=== PATIENT | male | born 1965 | race Caucasian/White ===

== ENCOUNTER 2021-05-08 11:58 | Emergency (ER) | payer MEDICAID, SELFPAY ==
[2021-05-08 12:00] VITALS: BP 154/110; PULSE 82; RESP 15; TEMP 36.2; O2SAT 100; BMI 21.1
--- NOTE | 2021-05-08 12:43 | EKG12_ITS ---
Test Reason : SOB Blood Pressure : / mmHG Vent. Rate : 064 BPM Atrial Rate : 064 BPM P-R Int : 160 ms QRS Dur : 084 ms QT Int : 430 ms P-R-T Axes : 065 052 040 degrees QTc Int : 443 ms Normal sinus rhythm Left ventricular hypertrophy Abnormal ECG Confirmed by CANDIE ARNOLD, KRISTY ([id number]), book editor DEB TAPIA ([id number]) on 05/09/2021 10:36:21 AM Referred By: GABRIEL Confirmed By:KRISTY SCHREIBER MD
--- NOTE | 2021-05-08 12:44 | CT_ITS ---
STUDY: CTA CHEST REASON FOR EXAM: Male, 55 years old. Dyspnea RADIATION DOSAGE (If Supplied By Facility): CTDIvol = ( 9.54 ) mGy, DLP = ( 345.12 ) mGycm TECHNIQUE: The examination was performed with the intravenous administration of IV 100mL Isovue-370. Post-processing of the angiographic images was performed, with multiplanar reformation and 3D reconstruction. Individualized dose optimization techniques were used for this CT. COMPARISON: None. FINDINGS: Normal enhancement of the main pulmonary artery and right and left pulmonary arteries. Normal enhancement of the bilateral peripheral pulmonary arteries. There is no demonstrated pulmonary embolism. Normal thoracic aorta and visualized great vessels. There is no demonstrated aortic dissection. Normal heart and pericardium. Normal mediastinum. Normal hilar regions. Normal visualized trachea and bronchi. The lungs are well expanded. Normal pulmonary parenchyma. Normal pleura. Normal chest wall structures. There are degenerative changes of thoracic spine. Normal visualized upper abdomen. CT/CTA Chest W/WO Contrast IMPRESSION: Normal CTA chest examination, without a demonstrated pulmonary embolism or arterial dissection. Electronically Signed: Brayan Castillo MD at 14:44 EDT , Service support ,
[2021-05-08] MEDS: Ipratropium/Albuterol Sulfate 3 ML AMPUL.NEB INHALATION (12:57)
[2021-05-08 12:59] VITALS: PULSE 65; RESP 20
--- NOTE | 2021-05-08 13:06 | ED.VIS.DYS ---
HPI History of Present Illness Chief Complaint: Shortness of Breath Informant: patient Onset/Context/Timing Onset: Today Context: gradual Timing: Continuous Quality: Positive for - (Tightness) Worsened by: Lying flat Relieved by: Nothing Associated Symptoms cough and rhinorrhea; Negative for post nasal drip, ear pain, fever, sore throat, chills, clear sputum, white sputum, yellow sputum or green sputum Chest Pain: Positive for None Narrative Narrative: Patient presents with shortness of breath that became worse today. Patient states it has gradually gotten worse. Patient describes as a tightness across his chest. Patient states it is worse sometimes when he lays flat. Patient admits to a cough denies any sputum production. Patient admits to some rhinorrhea. Patient denies any fevers or chills. Patient states he has had his COVID-19 vaccine. Patient does not think he has had any recent exposures to COVID-19. [facility] Medical History (Updated 05/08/21 @ 15:[address] Alexis Rosas DO) Stroke Home Medications albuterol sulfate [Ventolin HFA] 1 - 2 puff INHALATION Q4H PRN PRN #1 inhaler 05/08/21 [Rx Last Taken Unknown] Allergy/AdvReac Type Severity Reaction Status Date / Time nut - unspecified Allergy Anaphylaxis Verified 05/08/21 11:59 FRUITS AdvReac Other Uncoded 05/08/21 11:59 VEGATABLES AdvReac Other Uncoded 05/08/21 11:59 Surgical History (Updated 05/08/21 @ 13:[address] Alexis Rosas DO) Hx of fasciotomy Social History Smoking Status: Never smoker ROS ROS ED Constitutional Constitutional ED: Denies chills or fever(s) Eyes Eyes: Denies blurry vision or change in vision ENT ENT ED: Reports rhinorrhea; Denies sore throat Cardiovascular Cardiovascular: Denies chest pain or palpitations Respiratory/Chest Respiratory/Chest: Reports cough and dyspnea Gastrointestinal Gastrointestinal: Denies nausea or vomiting Genitourinary Genitourinary ED: Denies dysuria or hematuria Musculoskeletal Musculoskeletal: Reports neck pain; Denies back pain Integumentary Denies abscess or rash Neurologic Neurologic: Denies headache(s) or weakness Allergic/Immunologic Allergic/Immunologic ED: Denies mouth swelling or urticaria EXAM Physical Exam Const Vital Signs: 05/08/21 12:00 05/08/21 12:16 05/08/21 12:59 Temperature 97.1 F L Temperature Source Temporal Pulse Rate 82 65 Respiratory Rate 15 20 H Respiratory Effort Short of Breath Respiratory Depth Normal Respiratory Pattern Normal Normal Blood Pressure 154/110 H Blood Pressure Mean 124 Pulse Ox 100 Oxygen Delivery Method Room Air 05/08/21 14:03 Temperature Temperature Source Pulse Rate 61 Respiratory Rate 14 Respiratory Effort Respiratory Depth Respiratory Pattern Blood Pressure 132/87 H Blood Pressure Mean 102 Pulse Ox 97 Oxygen Delivery Method Positive well nourished and well developed General Appearance ED: well developed HEENT Reports moist mucous membranes Neck supple and no JVD Resp normal respiratory effort and clear to auscultation bilaterally Cardio regular rate, regular rhythm and no murmurs GI normal to inspection, nondistended, normoactive bowel sounds and non-tender Palpation: soft Extremity normal to inspection General Extremety ED: Negative for edema or tenderness General Extremity: Negative for edema Neuro oriented x3, CN's II-XII intact bilaterally and no sensory deficits noted Sensorium / Orientation: alert Motor Exam: strength 5/5 throughout Psych mental status grossly normal Skin no rashes or lesions noted MDM MDM MDM Narrative Medical decision making narrative: Patient was given a DuoNeb aerosol here. EKG was obtained. On my interpretation, it showed a normal sinus rhythm with a rate of 64. RI interval, QRS interval, and QTc intervals were all normal. Napoleon was normal. There are no acute ST or T wave changes. There is evidence of left ventricular hypertrophy. CBC and comprehensive metabolic profile were within normal limits. High-sensitivity troponin was normal. CTA of the chest was obtained. There is no evidence of luminary embolism, aortic dissection, or pneumonia. This was interpreted by the radiologist and reviewed by myself. COVID-19 rapid antigen was obtained and was negative. Patient was advised of his results. Patient was given a prescription for an albuterol inhaler to take as needed. Patient was instructed to take Tylenol or ibuprofen as needed for pain. Patient was instructed to follow-up with his primary care physician in 5 to 7 days. Patient understood and was agreeable with the plan. All questions were answered. Lab Data Attestation: I reviewed the patient's lab results. Labs: Laboratory Results - last 24 hr 05/08/21 05/08/21 13:35 13:35 WBC 4.2 L RBC 5.03 Hgb 15.0 Hct 44.0 MCV 87.5 MCH 29.8 MCHC 34.1 RDW Std Deviation 40.4 RDW Coeff of Sarah 12.6 Plt Count 242 MPV 10.7 Immature Gran % (Auto) 0.200 Neut % (Auto) 65.1 Lymph % (Auto) 23.1 Throckmorton % (Auto) 7.3 Eos % (Auto) 3.1 Baso % (Auto) 1.2 H Absolute Neuts (auto) 2.8 Absolute Lymphs (auto) 0.98 Nucleated RBC % 0 Sodium 141 Potassium 3.9 Chloride 107 Carbon Dioxide 29.0 Anion Gap 5 BUN 10 Creatinine 0.91 Estim Creat Clear Calc 96.37 Est GFR (MDRD) Af Amer 111 Est GFR (MDRD) Non-Af 92 BUN/Creatinine Ratio 10.9 Glucose 105 Calcium 8.7 Total Bilirubin 0.40 AST 23 ALT 31 Alkaline Phosphatase 92 Troponin I High Sens 5 Total Protein 7.0 Albumin 3.7 Globulin 3.3 Albumin/Globulin Ratio 1.1 Radiography Diagnostic Testing: Radiology Impression Chest CTA 05/08/21 12:44 IMPRESSION: Normal CTA chest examination, without a demonstrated pulmonary embolism or arterial dissection. Electronically Signed: Brayan Castillo MD at 14:44 EDT , Service support , EKG Initial EKG: Attestation: I personally reviewed and interpreted this EKG as follows: Interpretation: Sinus Rhythm (64) and No Acute Injury Pattern Comments: Left ventricular hypertrophy Prior EKG tracings: not available for review Discharge Plan Triage Chief Complaint: Shortness of Breath ED Provider: Alexis Rosas Dx/Rx/DC Orders Clinical Impression: Dyspnea Instructions: ED Dyspnea Prescriptions: New albuterol sulfate [Ventolin HFA] 1 INHALER inhaler 1 - 2 puff inhalation Q4H PRN PRN (Reason: Wheezing) Qty: 1 RF: 0 Primary Care Provider: Care Physician,No Primary Referrals: Care Physician,No Primary [Primary Care Provider] - Doctor,Your [STAFF PHYSICIAN] - 5-7 Days Disposition Disposition: Home, Self Care
[2021-05-08 13:47] LABS: Absolute Lymphocyte Count 0.98 X10^3/uL (0.83-4.51); Absolute Neutrophil Count 2.8 X10^3/uL (2.0-7.7); Basophil# 0.05 X10^3/uL; Basophil% 1.2 % (0-1); Eosinophil# 0.13 X10^3/uL; Eosinophils% 3.1 % (0-5); Lymphocyte # 0.98 X10^3/ul (0.83-4.51); Lymphocyte % 23.1 % (19-41); Mean Corp Hgb Conc 34.1 g/dL (32-36); Mean Corpuscular Hgb 29.8 pg (27.0-32.0); Mean Corpuscular Volume 87.5 fL (80-94); Mean Platelet Vol. 10.7 fl (6.2-12.0); Monocyte# 0.31 X10^3/uL; Monocyte% 7.3 % (0-10); NRBC Flagged by Analyzer 0 % (0-5); Neutrophil # 2.76 X10^3/uL (2.7-7.7); Neutrophil % 65.1 % (47-70); Platelet Count 242 K/mm3 (150-450); RBC Distribution Width CV 12.6 % (11.6-14.6); RBC Distribution Width SD 40.4 fl (35.1-43.9); Red Blood Count 5.03 M/mm3 (4.6-6.2); White Blood Count 4.2 K/mm3 (4.4-11.0)
[2021-05-08 14:03] VITALS: BP 132/87; PULSE 61; RESP 14; O2SAT 97
[2021-05-08 14:08] LABS: ALB/GLOB Ratio 1.1 RATIO (0.9-2.4); AST(SGOT) 23 U/L (15-37); Alanine Aminotransfer ALT/SGPT 31 U/L (16-61); Albumin, Serum 3.7 g/dL (3.2-5.0); Alkaline Phosphatase 92 U/L (45-117); Anion Gap 5 (5-15); BUN 10 mg/dL (7-18); BUN/Creat Ratio 10.9 RATIO (10-20); Calcium,Total 8.7 mg/dL (8.5-10.1); Chloride 107 mmol/L (98-107); Creatinine, Serum 0.91 mg/dL (0.70-1.30); EST Glomerular Filtration Rate 92 mL/min (>60); Est Glom Filt Rate - Afr Amer 111 mL/min (>60); Estimated Creatinine Clearance 96.37 ml/min; Globulin 3.3 g/dL (2.2-4.2); Glucose 105 mg/dL (74-106); Potassium 3.9 mmol/L (3.5-5.1); Sodium Level 141 mmol/L (136-145); Troponin-I HS 5 pg/mL (3.0-78.0)
[2021-05-08 16:23] VITALS: PULSE 67; RESP 16
== END 2021-05-08 16:24 | disposition home or self-care (01) ==
PROVIDERS: Emergency Provider Emergency Medicine
DX: R06.00 Dyspnea, unspecified (principal); R07.89 Other chest pain; R05 Cough; J34.89 Other specified disorders of nose and nasal sinuses; Z86.73 Personal history of transient ischemic attack (TIA), and cerebral infarction without residual deficits
CPT/HCPCS: 71275; 80053; 84484; 85025; 87426; 93005; 99284; Q9967; A4216

== ENCOUNTER 2024-03-25 01:35 | Emergency (ER) | payer MEDICAID, SELFPAY ==
[2024-03-25 01:36] VITALS: BP 149/99; PULSE 72; RESP 17; TEMP 36.6; O2SAT 96; BMI 22.8
--- NOTE | 2024-03-25 01:55 | EKG12_ITS ---
Test Reason : DYSRHYTHMIA Blood Pressure : / mmHG Vent. Rate : 073 BPM Atrial Rate : 073 BPM P-R Int : 172 ms QRS Dur : 084 ms QT Int : 404 ms P-R-T Axes : 020 029 028 degrees QTc Int : 445 ms Sinus rhythm with occasional Premature ventricular complexes Otherwise normal ECG Confirmed by CANDIE ARNOLD, KRISTY ([id number]), editor magazine ДМИТРИЙ WEISS ([id number]) on 03/25/2024 9:33:36 AM Referred By: RAMIRO Confirmed By:KRISTY SCHREIBER MD
[2024-03-25 02:03] LABS: Absolute Lymphocyte Count 1.65 X10^3/uL (0.83-4.51); Absolute Neutrophil Count 4.1 X10^3/uL (2.0-7.7); Basophil# 0.06 X10^3/uL; Basophil% 0.9 % (0-1); Eosinophil# 0.43 X10^3/uL; Eosinophils% 6.3 % (0-5); Hematocrit 43.8 % (40-54); Hemoglobin 14.8 g/dL (13.0-16.5); Lymphocyte # 1.65 X10^3/ul (0.83-4.51); Mean Corp Hgb Conc 33.8 g/dL (32-36); Mean Corpuscular Hgb 28.8 pg (27.0-32.0); Mean Corpuscular Volume 85.2 fL (80-94); Mean Platelet Vol. 10.4 fl (6.2-12.0); Monocyte# 0.61 X10^3/uL; Monocyte% 8.9 % (0-10); NRBC Flagged by Analyzer 0 % (0-5); Neutrophil % 59.6 % (47-70); Platelet Count 275 K/mm3 (150-450); RBC Distribution Width CV 12.3 % (11.6-14.6); RBC Distribution Width SD 37.9 fl (35.1-43.9); Red Blood Count 5.14 M/mm3 (4.6-6.2); White Blood Count 6.9 K/mm3 (4.4-11.0)
--- NOTE | 2024-03-25 02:09 | EDS_ITS ---
HPI History of Present Illness Chief Complaint: Palpitations Informant: patient Narrative Narrative: Presents by EMS from home after awakening 12:30 AM noting tachycardia and irregular heartbeat. States pulse oximeter told with a heart rate of 107 per patient. He reports history of anxiety with occasional panic attacks. Denies recent cough denies recent vomiting or diarrhea. Symptoms lasted about 30 minutes. No lightheaded symptoms. EMS arrival asymptomatic EKG is reviewed that was sent in normal sinus rhythm no acute findings noted. Pertinent medical history 2009 had a small stroke with no residual deficits he is on a baby aspirin. He states no recent blood work. Patient reports a Holter monitor in 2009 with his stroke stating no dysrhythmias were found. Prior similar symptoms: Yes [facility] Medical History Stroke Home Medications ?Medication ?Instructions ?Recorded ?Last Taken ?Type aspirin 81 mg tablet,delayed 81 mg PO DAILY 03/25/24 Unknown History release (Adult Aspirin Regimen) Allergy/AdvReac Type Severity Reaction Status Date / Time nut - unspecified Allergy Anaphylaxis Verified 03/25/24 01:41 Food Allergies: Uncoded AdvReac Other Verified 03/25/24 01:41 Surgical History Hx of fasciotomy Social History Smoking Status: Never smoker ROS ROS ED Constitutional Constitutional ED: Denies chills, fever(s) or sweats Eyes Eyes: Denies change in vision ENT ENT ED: Denies dysphagia or sore throat Cardiovascular Cardiovascular: Reports palpitations and racing heartbeat; Denies chest pain or leg edema Respiratory/Chest Respiratory/Chest: Denies cough, dyspnea or dyspnea on exertion Gastrointestinal Gastrointestinal: Denies abdominal pain, diarrhea, nausea or vomiting Genitourinary Genitourinary ED: Denies dysuria, hematuria or urinary frequency Musculoskeletal Musculoskeletal: Denies back pain, extremity pain or neck pain Integumentary Denies rash or wounds Neurologic Neurologic: Denies headache(s), paresthesias or weakness EXAM Physical Exam Const Vital Signs: 03/25/24 01:36 03/25/24 02:36 03/25/24 03:00 Temperature 97.8 F Temperature Source Oral Pulse Rate 72 78 95 Respiratory Rate 17 16 18 Blood Pressure 149/99 H 130/99 H 135/93 H Blood Pressure Mean 115 109 107 Pulse Ox 96 97 97 Oxygen Delivery Method Room Air Room Air 03/25/24 03:14 Temperature 98.6 F Temperature Source Pulse Rate 58 L Respiratory Rate 18 Blood Pressure 135/93 H Blood Pressure Mean 107 Pulse Ox 98 Oxygen Delivery Method Positive well nourished and well developed General Appearance ED: well developed and NAD HEENT Reports moist mucous membranes normocephalic and atraumatic Eyes EOMs intact bilaterally and conjunctivae normal General Eye ED: Yes normal appearance of both eyes Neck no lymphadenopathy and supple General: Negative for tenderness Chest Wall Chest: Negative for tenderness Resp normal respiratory effort and normal air movement Effort and Inspection: symmetric chest movement; Negative for respiratory distress Cardio regular rate, regular rhythm and no murmurs Peripheral Pulses: pulses 2+ throughout GI normal to inspection, nondistended, normoactive bowel sounds and non-tender Palpation: Negative for guarding or rebound tenderness present Back/Spine no CVA tenderness and no thoracic nor lumbar tenderness Extremity normal to inspection General Extremety ED: Negative for edema or tenderness General Extremity: Negative for edema Neuro oriented x3 and no sensory deficits noted Sensorium / Orientation: awake and alert Skin no rashes or lesions noted and no wounds MDM MDM MDM Narrative Medical decision making narrative: Interventions / MDM: Differential diagnosis: Palpitations, cardiac dysrhythmia Diagnosis considered but do not suspect: Pulm embolism however no dyspnea, hypoxia, or tachycardia. My EKG interpretation: Sinus rate of 73, no ST changes, PVC noted. QTc 445. Imaging independently reviewed and interpreted by myself: N/A External documents reviewed: N/A Test considered but not ordered:N/A ED course: Patient currently asymptomatic. EKG no acute findings occasional PVC noted on the monitor however he is asymptomatic from this. Will check basic labs and thyroid screening. Will continue to monitor. Labs potassium 3.0 orally replaced. TSH was elevated, T4 level sent and was no rmal. Remains asymptomatic in the ED. Patient set up for 48-hour Holter monitor through the emergency department. Is given follow-up as an outpatient. Return precaution discussed with the patient. All questions were answered. Re-evaluation: stable Disposition discussed with patient/family/significant other: Patient Case discussed with consulting clinician: N/A This note was generated with Veodiaation software. It may contain incorrect words, spelling, and punctuation that were not noted in checking the note before signing. Lab Data Attestation: I reviewed the patient's lab results. Labs: Laboratory Results - last 24 hr 03/25/24 01:24 WBC 6.9 RBC 5.14 Hgb 14.8 Hct 43.8 MCV 85.2 MCH 28.8 MCHC 33.8 RDW Std Deviation 37.9 RDW Coeff of Sarah 12.3 Plt Count 275 MPV 10.4 Immature Gran % (Auto) 0.300 Neut % (Auto) 59.6 Lymph % (Auto) 24.0 Mccreary % (Auto) 8.9 Eos % (Auto) 6.3 H Baso % (Auto) 0.9 Absolute Neuts (auto) 4.1 Absolute Lymphs (auto) 1.65 Nucleated RBC % 0 Sodium 139 Potassium 3.0 L Chloride 104 Carbon Dioxide 29.0 Anion Gap 6 BUN 11 Creatinine 0.92 Estim Creat Clear Calc 99.80 Est GFR (MDRD) Af Amer 110 Est GFR (MDRD) Non-Af 91 BUN/Creatinine Ratio 12.0 Glucose 141 H Calcium 8.9 TSH 5.41 H Free T4 0.95 Discharge Plan Triage Chief Complaint: Palpitations ED Provider: Paco Hall Dx/Rx/DC Orders Clinical Impression: Palpitations, Hypokalemia, Asymptomatic PVCs Instructions: PVCs, ED Palpitations Prescriptions: No Action aspirin [Adult Aspirin Regimen] 81 mg tablet,delayed release (DR/EC) 81 mg PO DAILY Primary Care Provider: Care Physician,No Primary Referrals: Kevin Murray DO [Med Staff - Outdoor Illuminating Engineer] - 1 Week Care Physician,No Primary [Primary Care Provider] - Activity Restrictions/Additional Instructions: Labs no potassium 3.0. Orally replaced. Free thyroid levels were normal. Maintain 40-hour Holter monitor. Try to avoid caffeine products. Follow-up as an outpatient as given. If symptoms return or worsens, return to ED for reevaluation. Print Language: Citizen Of [place] Disposition Disposition: Home, Self Care Discharge Date/Time: 03/25/24 03:17
[2024-03-25 02:29] LABS: Anion Gap 6 (5-15); BUN 11 mg/dL (7-18); Calcium,Total 8.9 mg/dL (8.5-10.1); Chloride 104 mmol/L (98-107); Creatinine, Serum 0.92 mg/dL (0.70-1.30); EST Glomerular Filtration Rate 91 mL/min (>60); Est Glom Filt Rate - Afr Amer 110 mL/min (>60); Glucose 141 mg/dL (74-106); Sodium Level 139 mmol/L (136-145); Thyroid Stim Hormone (TSH) 5.41 uIU/mL (0.358-3.74)
[2024-03-25 02:36] VITALS: BP 130/99; PULSE 78; RESP 16; O2SAT 97
[2024-03-25] MEDS: Potassium Chloride Oral Tablet 20 MEQ 40 MEQ PO (02:43)
[2024-03-25 02:53] LABS: T4 Free Direct 0.95 ng/dL (0.76-1.46)
[2024-03-25 03:00] VITALS: BP 135/93; PULSE 95; RESP 18; O2SAT 97
[2024-03-25 03:14] VITALS: BP 135/93; PULSE 58; RESP 18; TEMP 37; O2SAT 98
== END 2024-03-25 03:17 | disposition home or self-care (01) ==
PROVIDERS: Emergency Provider Emergency Medicine; Visit Provider Emergency Medicine
DX: I49.3 Ventricular premature depolarization (principal); E87.6 Hypokalemia; Z79.82 Long term (current) use of aspirin; Z86.73 Personal history of transient ischemic attack (TIA), and cerebral infarction without residual deficits
CPT/HCPCS: 80048; 84439; 84443; 85025; 93005; 93225; 93226; 99285

== ENCOUNTER → 2024-03-25 | Outpatient (CLI) | payer MEDICAID, SELFPAY | END | disposition home or self-care (01) | LOC: CVS 02:19 | PROVIDERS: Visit Provider Emergency Medicine | DX: R00.2 Palpitations (principal) | CPT/HCPCS: 93225; 93226 ==

== ENCOUNTER 2024-04-03 03:26 | Emergency (ER) | payer MEDICAID, SELFPAY ==
[2024-04-03 03:27] VITALS: BP 156/99; PULSE 78; RESP 16; TEMP 36.5; O2SAT 100; BMI 22.9
--- NOTE | 2024-04-03 03:32 | EDS_ITS ---
HPI History of Present Illness Chief Complaint: Palpitations [facility] Medical History Stroke Home Medications ?Medication ?Instructions ?Recorded ?Last Taken ?Type aspirin 81 mg tablet,delayed 81 mg PO DAILY 03/25/24 Unknown History release (Adult Aspirin Regimen) Allergy/AdvReac Type Severity Reaction Status Date / Time nut - unspecified Allergy Anaphylaxis Verified 04/03/24 03:27 Food Allergies: Uncoded AdvReac Other Verified 04/03/24 03:27 Surgical History Hx of fasciotomy Social History Smoking Status: Never smoker EXAM Physical Exam Const Vital Signs: 04/03/24 03:27 04/03/24 03:41 04/03/24 04:27 Temperature 97.7 F L Temperature Source Oral Pulse Rate 78 60 Respiratory Rate 16 12 Blood Pressure 156/99 H 133/99 H Blood Pressure Mean 118 110 Pulse Ox 100 96 Oxygen Delivery Method Room Air Room Air MDM MDM MDM Narrative Medical decision making narrative: HISTORY OF PRESENT ILLNESS: 58-year-old male presents with palpitations. Notes he woke up palpitations. Notes he recently had a Holter monitor to further evaluate the symptoms. He states he has had PVCs with agreement over life however recently they have become more severe and worrisome. Notes he is under a lot of stress caring for his elderly mother. He denies any bleeding diathesis. Denies any vomiting or diarrhea. Denies any chest pain. Denies any leg swelling. Denies any decreased exercise tolerance. The patient denies recent surgery in the last 4 weeks or immobilization in the last 3 days, denies previous diagnosis of DVT or PE, hemoptysis, unilateral leg swelling or malignancy with treatment the last 6 months or palliative. No estrogen use noted. REVIEW OF SYSTEMS: Pertinent positives: Palpitations Pertinent negatives: As per HPI PHYSICAL EXAM: Nursing triage notes reviewed, Vital signs reviewed Constitutional: please see mdm HENT: MMM Eyes: Pupils equal round and reactive to light, Extraocular muscles intact Neck: No stridor, no JVD, full neck ROM Lungs: Clear to auscultation, No wheezing or rales. No increased work of breathing, no conversational dyspnea, no accessory muscle use, no nasal flaring. No respiratory distress noted Heart: Regular rate and rhythm, No murmurs, No rubs and No gallops, 2+ distal pulses (radial, femoral, posterior tibial) in all extremities Abdomen: Soft, there is no tenderness, rigidity, rebound or guarding, no obvious peritoneal signs, no palpable pulsatile abdominal masses, no auscultated abdominal bruit : No CVAT Extremities: No edema Neuro: No focal neurological deficits, cranial nerves II through XII intact, 5/5 strength in all extremities. Intact sensation to light touch in all extremities, 2+ reflexes bilateral patella tendons. Normal gait. No ataxia. Skin: No rash or lesions noted MEDICAL DECISION MAKING: Chief Complaint: Palpitations External records reviewed: Holter monitor report reviewed: Large PVC burden noted. No runs of ventricular tachycardia noted. Reviewed recent ED visit labs with a elevated TSH but normal T4 Factors affecting care: History of palpitations, premature ventricular contraction Social determinants of health: none History obtained from others: Pts Consults: none MDM Narrative: Patient was hemodynamically stable, afebrile nontoxic-appearing. Exam without focal cardiopulmonary abnormalities. He is initially hypertensive at 156/99 I considered the following differential diagnosis: Arrhythmia, anemia, myocardi al ischemia, thyroid dysfunction, electrolyte disturbance, dehydration I obtained a broad lab and imaging workup to further elucidate etiology patient complaint. I gave 1 L normal saline for rehydration. ALL IMAGES (IF OBTAINED) HAVE BEEN PERSONALLY REVIEWED AND INTERPRETED BY MYSELF. EKG with normal sinus rhythm, normal axis, normal intervals, no STEMI, similar to EKG from March 2024 High-sensitivity troponin is negative, no evidence of myocardial ischemia Magnesium within normal limits CBC without leukocytosis, anemia or thrombocytopenia BMP without evidence of significant electrolyte abnormalities, no anion gap, no acute kidney injury. On reevaluation patient's blood pressure improved to 133/99. The synthesis of the patient's history, physical exam, labs, and images suggest likely frequent PVCs causing symptoms. These are benign and not life-threatening and do not require specific treatment. I also considered thyroid etiology however the patient had recent thyroid testing was negative. There is no indication for admission at this time. Encouraged the patient to follow-up with cardiology as well as electrophysiology for further outpatient evaluation and treatment. The patient and/or family, caregivers express understanding. The patient and/or family, caregivers agrees with the plan. Shared decision making: I will have a discussion with the patient and or visitors regarding risk/benefits of further testing or admission. They will be made aware of of the risk/benefits inherent in this decision they will be given the opportunity to voice understanding. Total critical care time today provided was at least 0 minutes. This excludes separately billable procedures. Critical care time (if documented) is secondary to the patient having high probability of clinically significant/life threatening deterioration in the patient's condition which required my urgent intervention. Impression: 1. Palpitations 2. History PVCs Dispo: Discharge home This note was generated with [employer] Here dictation software. It may contain incorrect words, spelling, and punctuation that were not noted in review of the chart prior to signing. Lab Data Labs: Laboratory Results - last 24 hr 04/03/24 03:40 WBC 6.0 RBC 5.17 Hgb 14.8 Hct 43.6 MCV 84.3 MCH 28.6 MCHC 33.9 RDW Std Deviation 36.4 RDW Coeff of Sarah 12.1 Plt Count 263 MPV 10.5 Immature Gran % (Auto) 0.300 Neut % (Auto) 64.9 Lymph % (Auto) 19.9 Mineral % (Auto) 7.5 Eos % (Auto) 6.1 H Baso % (Auto) 1.3 H Absolute Neuts (auto) 3.9 Absolute Lymphs (auto) 1.20 Nucleated RBC % 0 Sodium 138 Potassium 3.8 Chloride 107 Carbon Dioxide 27.0 Anion Gap 4 L BUN 14 Creatinine 0.84 Estim Creat Clear Calc 109.72 Est GFR (MDRD) Af Amer 121 Est GFR (MDRD) Non-Af 100 BUN/Creatinine Ratio 16.6 Glucose 118 H Calcium 8.7 Magnesium 1.8 Troponin I High Sens 5 Radiography Diagnostic Testing: Clinical Impression(s) from Imaging Studies Chest X-Ray 04/03/24 04:00 IMPRESSION: No radiographic evidence of acute cardiopulmonary disease. Electronically Signed: Vivi Kern MD at 4:55 EDT , Discharge Plan Triage Chief Complaint: Palpitations ED Provider: Sundeep Whiting Dx/Rx/DC Orders Instructions: ED Palpitations Prescriptions: No Action aspirin [Adult Aspirin Regimen] 81 mg tablet,delayed release (DR/EC) 81 mg PO DAILY Primary Care Provider: Care Physician,No Primary Referrals: Bernardo Coffey MD [Med Staff - Active Staff] - Activity Restrictions/Additional Instructions: Thank you for trusting us with your care today! Your labs images were reassuring. No signs of electrolyte abnormality, anemia, heart damage. Please drink plenty of fluids. Please return to the emergency department if your symptoms change or worsen. Please follow with your Cardiology (Dr. Coffey), Electrophysiology (at a larger institution) and/or primary care physician for further outpatient evaluation and management. Print Language: Sinhala Disposition Disposition: Home, Self Care
--- NOTE | 2024-04-03 03:41 | EKG12_ITS ---
Test Reason : DYSRHYTHMIA Blood Pressure : / mmHG Vent. Rate : 077 BPM Atrial Rate : 077 BPM P-R Int : 166 ms QRS Dur : 082 ms QT Int : 392 ms P-R-T Axes : 025 034 031 degrees QTc Int : 443 ms Sinus rhythm with Premature supraventricular complexes Minimal voltage criteria for LVH, may be normal variant ( Sokolow-Carson ) Septal infarct , age undetermined Abnormal ECG Confirmed by CANDIE ARNOLD, KRISTY ([id number]), subeditor [employer]МИТРЙИ WEISS ([id number]) on 04/04/2024 9:44:09 AM Referred By: MICHELA Confirmed By:KRISTY SCHREIBER MD
[2024-04-03 03:50] LABS: Absolute Neutrophil Count 3.9 X10^3/uL (2.0-7.7); Basophil# 0.08 X10^3/uL; Basophil% 1.3 % (0-1); Eosinophil# 0.37 X10^3/uL; Eosinophils% 6.1 % (0-5); Hematocrit 43.6 % (40-54); Hemoglobin 14.8 g/dL (13.0-16.5); Lymphocyte % 19.9 % (19-41); Mean Corp Hgb Conc 33.9 g/dL (32-36); Mean Corpuscular Hgb 28.6 pg (27.0-32.0); Mean Corpuscular Volume 84.3 fL (80-94); Mean Platelet Vol. 10.5 fl (6.2-12.0); Monocyte# 0.45 X10^3/uL; Monocyte% 7.5 % (0-10); NRBC Flagged by Analyzer 0 % (0-5); Neutrophil % 64.9 % (47-70); Platelet Count 263 K/mm3 (150-450); RBC Distribution Width CV 12.1 % (11.6-14.6); RBC Distribution Width SD 36.4 fl (35.1-43.9); Red Blood Count 5.17 M/mm3 (4.6-6.2)
--- NOTE | 2024-04-03 04:00 | RAD_ITS ---
STUDY: X-RAY CHEST REASON FOR EXAM: Male, 58 years old patient with chest pain. TECHNIQUE: Single AP portable view of the chest. COMPARISON: CTA of the chest dated May 08, 2021. FINDINGS: Cardiac monitoring leads are present. The lungs are clear and hyperexpanded. There is no demonstrated pleural abnormality. Normal size heart. Normal mediastinum and luis. Normal visualized pulmonary arteries. Normal visualized aortic arch and descending thoracic aorta. Normal visualized thoracic spine. Normal visualized ribs, clavicles, and shoulders. There is no demonstrated abnormality of the visualized soft tissue structures of the upper abdomen. RAD/Chest 1 View (Portable) IMPRESSION: No radiographic evidence of acute cardiopulmonary disease. Electronically Signed: Vivi Kern MD at 4:55 EDT ,
[2024-04-03 04:09] LABS: Anion Gap 4 (5-15); BUN 14 mg/dL (7-18); BUN/Creat Ratio 16.6 RATIO (10-20); Calcium,Total 8.7 mg/dL (8.5-10.1); Chloride 107 mmol/L (98-107); Creatinine, Serum 0.84 mg/dL (0.70-1.30); EST Glomerular Filtration Rate 100 mL/min (>60); Est Glom Filt Rate - Afr Amer 121 mL/min (>60); Estimated Creatinine Clearance 109.72 ml/min; Glucose 118 mg/dL (74-106); Magnesium 1.8 mg/dL (1.6-2.6); Potassium 3.8 mmol/L (3.5-5.1); Sodium Level 138 mmol/L (136-145); Troponin-I HS 5 pg/mL (3.0-78.0)
[2024-04-03 04:27] VITALS: BP 133/99; PULSE 60; RESP 12; O2SAT 96
[2024-04-03] MEDS: 0.9% Normal Saline (1000mL) 1,000 ML 999 ML IV (04:41)
[2024-04-03 05:00] VITALS: BP 130/83; PULSE 58; RESP 13; O2SAT 96
[2024-04-03 05:30] VITALS: BP 130/83; PULSE 59; RESP 13; TEMP 35.9; O2SAT 97
== END 2024-04-03 05:35 | disposition home or self-care (01) ==
PROVIDERS: Emergency Provider Emergency Medicine; Visit Provider Emergency Medicine
DX: R00.2 Palpitations (principal); Z86.73 Personal history of transient ischemic attack (TIA), and cerebral infarction without residual deficits
CPT/HCPCS: 71045; 80048; 83735; 84484; 85025; 93005; 96360; 99284; J7030; A4216

== ENCOUNTER 2025-03-23 16:30 | Emergency (ER) | payer MEDICAID, SELFPAY ==
[2025-03-23 16:31] VITALS: BP 150/98; PULSE 63; RESP 18; TEMP 36.8; O2SAT 99
[2025-03-23 17:14] VITALS: BMI 22.4
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
--- NOTE | 2025-03-23 17:33 | RAD_ITS ---
PROCEDURE: RIGHT ELBOW MIN 3 VIEWS 03/23/2025 REASON FOR EXAM: INJURY TECHNIQUE: RIGHT ELBOW MIN 3 VIEWS COMPARISON: None. FINDINGS: No acute fracture or dislocation. Alignment is anatomic. Preserved joint spaces. No joint effusion. Mild soft tissue swelling at the dorsal aspect of the elbow. No radiopaque foreign body. RAD/Elbow min 3 Views IMPRESSION: No acute fracture or dislocation. Reading Location: [id number]
--- NOTE | 2025-03-23 17:33 | RAD_ITS ---
PROCEDURE: LEFT KNEE 4 OR MORE VIEWS 03/23/2025 REASON FOR EXAM: INJURY TECHNIQUE: LEFT KNEE 4 OR MORE VIEWS COMPARISON: None. FINDINGS: There appears to be a vertically oriented nondisplaced fracture through the lateral aspect of the patella. No additional acute fracture or dislocation is seen. Patellar sunrise view demonstrates mild lateral tilt/subluxation of the patella, suggesting instability. Preserved joint spaces. No substantial joint effusion appreciated. Moderate prepatellar soft tissue swelling. RAD/Knee 4 or More Views IMPRESSION: Acute nondisplaced vertically oriented fracture through the lateral aspect of t he patella. Slight lateral tilt/subluxation of the patella suggesting instability. Moderate prepatellar soft tissue swelling. Reading Location: [id number]
[2025-03-23] MEDS: Lidocaine 1% (20 ml mdv) 20 ML Vial INFILT (17:48)
--- NOTE | 2025-03-23 18:40 | CM.ED ---
Social work Reason for referral: no PCP Referral source: case find SW identified patient's lack of PCP and need for resources. SW entered patient's room, introducing self and role at [facility]. Patient confirmed lacking a PCP and accepted resources of [facility] Provider Directory and Sheila Hagen information. 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 Didi was bedside and stated being auto parts professional caregivers for patient's aging mother who has Alzheimer's. Didi stated having 2 caregivers that care for patient's mother, but desiring to have more options. Patient and Didi were grateful for the private wealth advisor list as another resource to consider. Patient and Didi denied further needs at this time. Paris Cho, CHAIR AND COUCH MAKER, [employer]
[2025-03-23 19:14] VITALS: BP 141/88; PULSE 63; RESP 18; TEMP 36.8; O2SAT 99
== END 2025-03-23 19:17 | disposition home or self-care (01) ==
PROVIDERS: Emergency Provider Emergency Medicine; Visit Provider Emergency Medicine
DX: S82.002A Unspecified fracture of left patella, initial encounter for closed fracture (principal); S51.011A Laceration without foreign body of right elbow, initial encounter; W01.10XA Fall on same level from slipping, tripping and stumbling with subsequent striking against unspecified object, initial encounter; Y93.02 Activity, running; Y92.89 Other specified places as the place of occurrence of the external cause; Z86.73 Personal history of transient ischemic attack (TIA), and cerebral infarction without residual deficits; Z79.82 Long term (current) use of aspirin; Z23 Encounter for immunization; S80.219A Abrasion, unspecified knee, initial encounter; S70.319A Abrasion, unspecified thigh, initial encounter
CPT/HCPCS: 12001; 73080; 73564; 90715; 99284

== ENCOUNTER 2025-05-30 05:41 | Emergency (ER) | payer MEDICAID, SELFPAY ==
[2025-05-30 05:42] VITALS: BP 147/96; PULSE 59; RESP 16; TEMP 36.6; O2SAT 98
[2025-05-30] MEDS: Lidocaine 2% /Epi 1:100 (20ml) 20 ML VIAL INFILT (06:33)
--- NOTE | 2025-05-30 07:05 | EDS_ITS ---
HPI History of Present Illness Chief Complaint: Dental [facility] Medical History Stroke Home Medications ?Medication ?Instructions ?Recorded ?Last Taken ?Type aspirin 81 mg tablet,delayed 81 mg PO DAILY 03/25/24 0 03/23/25 History release (Adult Aspirin Regimen) amoxicillin 500 mg capsule 500 mg PO Q8H 05/30/25 Unkn own History clindamycin HCl 300 mg capsule 300 mg PO 4X/DAY 10 day s #40 caps 05/30/25 Unknown Rx (Cleocin HCl) Allergy/AdvReac Type Severity Reaction Status Date / Time tree nut (tree nuts) Allergy Anaphylaxis Verified 05/30/25 05:41 Food Allergies: Uncoded AdvReac Other Verified 05/30/25 05:41 Surgical History Hx of fasciotomy Social History Smoking Status: Never smoker alcohol intake: never EXAM Physical Exam Const Vital Signs: 05/30/25 05:42 Temperature 97.9 F Temperature Source Oral Pulse Rate 59 L Respiratory Rate 16 Blood Pressure 147/96 H Blood Pressure Mean 113 Pulse Ox 98 Oxygen Delivery Method Room Air Discharge Plan Triage Chief Complaint: Dental ED Provider: Marty Larsen Dx/Rx/DC Orders Clinical Impression: Dental abscess Prescriptions: New clindamycin HCl [Cleocin HCl] 300 mg capsule 300 mg PO 4X/DAY 10 Days Qty: 40 0RF No Action aspirin [Adult Aspirin Regimen] 81 mg tablet,delayed release (DR/EC) 81 mg PO DAILY amoxicillin 500 mg capsule 500 mg PO Q8H Primary Care Provider: Care Physician,No Primary Referrals: Care Physician,No Primary [Primary Care Provider, Medical] Activity Restrictions/Additional Instructions: Please stop the amoxicillin and begin taking the clindamycin for improved infection coverage. Continue with 2 extra strength Tylenol and 3 ibuprofen at a time for pain control and you may do this every 6 hours or 4 times a day. Ice the face to help reduce pain and swelling and do salt water gargles 2 or 3 times a day for the next 2 days. Follow-up with your dentist for further evaluation and return to the ER should you have any further concerns Print Language: Bahraini Disposition Disposition: Home, Self Care
--- NOTE | 2025-05-30 07:05 | EX.ED.DYSGE1 ---
HPI History of Present Illness Chief Complaint: Dental Informant: patient and spouse/S.O. Narrative Narrative: Patient is 59-year-old male who reports a past history of stroke but without residual deficits and states he only takes an aspirin a day. He states he has multiple dental issues. He reports that over the weekend he developed right lower dental pain and went and saw his dentist as symptoms are worsening throughout the weekend. He states the dentist informed him he needs a root canal and is concerned there is an infection and placed him on amoxicillin. He states that he has been taking it as directed but has had increased pain and swelling over the last 24 hours and secondary to this comes to the hospital for evaluation. [facility] Medical History Stroke Home Medications ?Medication ?Instructions ?Recorded ?Last Taken ?Type aspirin 81 mg tablet,delayed 81 mg PO DAILY 03/25/24 03/23/25 History release (Adult Aspirin Regimen) amoxicillin 500 mg capsule 500 mg PO Q8H 05/30/25 Unknown History clindamycin HCl 300 mg capsule 300 mg PO 4X/DAY 10 days #40 caps 05/30/25 Unknown Rx (Cleocin HCl) Allergy/AdvReac Type Severity Reaction Status Date / Time tree nut (tree nuts) Allergy Anaphylaxis Verified 05/30/25 05:41 Food Allergies: Uncoded AdvReac Other Verified 05/30/25 05:41 Surgical History Hx of fasciotomy Social History Smoking Status: Never smoker alcohol intake: never ROS ROS ED Constitutional Constitutional ED: Denies chills or fever(s) ENT ENT ED: Reports other Details: Positive dental pain and facial swelling ; Denies sore throat Cardiovascular Cardiovascular: Denies chest pain Respiratory/Chest Respiratory/Chest: Denies cough or dyspnea Gastrointestinal Gastrointestinal: Denies abdominal pain, diarrhea, nausea or vomiting Musculoskeletal Musculoskeletal: Denies myalgias or neck pain Integumentary Reports abscess Neurologic Neurologic: Denies headache(s) Hematologic/Lymphatic Hematologic/Lymphatic: Denies easy bleeding or easy bruising Allergic/Immunologic Allergic/Immunologic ED: Denies mouth swelling or tongue swelling EXAM Physical Exam Const Vital Signs: 05/30/25 05:42 05/30/25 07:36 Temperature 97.9 F 98.4 F Temperature Source Oral Pulse Rate 59 L 54 L Respiratory Rate 16 20 H Blood Pressure 147/96 H 155/102 H Blood Pressure Mean 113 119 Pulse Ox 98 97 Oxygen Delivery Method Room Air Positive well nourished and well developed General Appearance ED: well developed; Negative for pallor HEENT HEENT Narrative: There is soft tissue swelling along the right lower jaw without overlying erythema or warmth No tongue or lip swelling; no airway edema or compromise No signs of ANUG Patient has multiple dental caries greatest in the right lower jaw and in the gingival region at this site there is increased soft tissue swelling and fluctuance consistent with abscess but no active drainage. Eyes PERRL and EOMs intact bilaterally Neck supple Neck Narrative: No brawny edema in the submental space to suggest Ruslan's angina Positive anterior cervical lymphadenopathy is present Resp normal respiratory effort and clear to auscultation bilaterally Cardio regular rate and regular rhythm Extremity normal to inspection Neuro oriented x3, CN's II-XII intact bilaterally and no sensory deficits noted Sensorium / Orientation: alert Motor Exam: strength 5/5 throughout Psych mental status grossly normal Skin no rashes or lesions noted Skin Narrative: Soft tissue swelling to the external aspect of the right jaw as documented above concerning for underlying dental abscess General Skin Exam: Negative for jaundice or pallor MDM MDM MDM Narrative Medical decision making narrative: Patient arrived to the ER mildly hypertensive but otherwise with stable vitals. He reported increased swelling and pain along the right jaw without trauma. By physical exam there is no signs of ANUG or Ruslan's angina and he does not have airway edema or compromise so I feel no need for imaging or laboratory studies. Patient also does not have any reported history of immunosuppression and as he is afebrile and actually hypertensive not hypotension I have low concern for sepsis. Therefore the patient underwent incision and drainage of the dental abscess as documented below. As he is only been on amoxicillin his antibiotic will be changed to clindamycin for improved infection prophylaxis. However at this time with improvement of symptoms after incision and drainage of his dental abscess no signs of airway compromise or sepsis there is no need for further intervention and he is otherwise safe for discharge Patient was given a right inferior alveolar dental block using 1.5 mL of 0.5% Marcaine and 1.5 mL of 2% lidocaine with epinephrine. Following anesthesia a #11 blade was used to make a 1 cm incision over top of the gingiva at the area of fluctuance along the right molar region. There was expression of blood and purulent material. Following incision and drainage there was improved swelling along the jawline consistent with abscess drainage. Patient tolerated the procedure well without complication History & Record Review Discussion w/independent historian: Patient and Significant other Discharge Plan Triage Chief Complaint: Dental ED Provider: Marty Larsen Dx/Rx/DC Orders Clinical Impression: Dental abscess, Dental caries Instructions: Dental Abscess, ED Dental Pain Prescriptions: New clindamycin HCl [Cleocin HCl] 300 mg capsule 300 mg PO 4X/DAY 10 Days Qty: 40 0RF No Action aspirin [Adult Aspirin Regimen] 81 mg tablet,delayed release (DR/EC) 81 mg PO DAILY amoxicillin 500 mg capsule 500 mg PO Q8H Primary Care Provider: Care Physician,Esther Primary Referrals: Care Physician,No Primary [Primary Care Provider, Medical] Activity Restrictions/Additional Instructions: Please stop the amoxicillin and begin taking the clindamycin for improved infection coverage. Continue with 2 extra strength Tylenol and 3 ibuprofen at a time for pain control and you may do this every 6 hours or 4 times a day. Ice the face to help reduce pain and swelling and do salt water gargles 2 or 3 times a day for the next 2 days. Follow-up with your dentist for further evaluation and return to the ER should you have any further concerns Print Language: Albanian Disposition Disposition: Home, Self Care Discharge Date/Time: 05/30/25 07:52
[2025-05-30 07:36] VITALS: BP 155/102; PULSE 54; RESP 20; TEMP 36.9; O2SAT 97
== END 2025-05-30 07:52 | disposition home or self-care (01) ==
PROVIDERS: Emergency Provider Emergency Medicine; Visit Provider Emergency Medicine
DX: K04.7 Periapical abscess without sinus (principal); K02.9 Dental caries, unspecified; Z86.73 Personal history of transient ischemic attack (TIA), and cerebral infarction without residual deficits; Z79.82 Long term (current) use of aspirin
CPT/HCPCS: 41800; 64400; 99282